=== PATIENT | male | born 1960 | race Two or more races ===

== ENCOUNTER → 2018-04-07 | Outpatient (CLI) | payer BC ==
[~2018-04-07] MED LIST: ALPR0.5T8 PO; ASPI-1169 PO; ATOR10TA PO; FENO145T35 PO; INDO75CA3 PO; LISI40TA4 PO; METF-442 PO; METO25TA20 PO; OMEP20CA10 PO
== END | disposition home or self-care (01) ==
LOC: MSC 13:15
PROVIDERS: ATTEND Anesthesiology
DX: Z76.0 Encounter for issue of repeat prescription (principal); M54.12 Radiculopathy, cervical region; M43.02 Spondylolysis, cervical region; M50.20 Other cervical disc displacement, unspecified cervical region; M79.602 Pain in left arm; Z79.891 Long term (current) use of opiate analgesic; I10 Essential (primary) hypertension; E11.9 Type 2 diabetes mellitus without complications; Z79.84 Long term (current) use of oral hypoglycemic drugs; I25.10 Atherosclerotic heart disease of native coronary artery without angina pectoris; Z95.5 Presence of coronary angioplasty implant and graft

== ENCOUNTER 2018-05-05 13:15 | Outpatient (CLI) | payer BC | END 2018-05-05 23:59 | disposition home or self-care (01) | LOC: MSC 13:15 | PROVIDERS: ATTEND Anesthesiology | DX: M50.20 Other cervical disc displacement, unspecified cervical region (principal); M54.12 Radiculopathy, cervical region; M43.02 Spondylolysis, cervical region; M79.602 Pain in left arm; E11.9 Type 2 diabetes mellitus without complications; Z79.84 Long term (current) use of oral hypoglycemic drugs; I10 Essential (primary) hypertension; I25.10 Atherosclerotic heart disease of native coronary artery without angina pectoris; Z95.818 Presence of other cardiac implants and grafts; Z79.891 Long term (current) use of opiate analgesic ==

== ENCOUNTER 2018-05-15 15:07 | Emergency (ER) | payer BC ==
[~2018-05-15] VITALS: Ht 175.3 cm; Wt 82.3 kg
[2018-05-15 15:30] LABS: BASOPHILS # (AUTO) 0.1 /CMM (0.0-0.2); EOSINOPHILS % (AUTO) 1.5 % (0.0-6.0); HEMATOCRIT 40 % (39-51); HEMOGLOBIN 13.5 g/dL (13.5-17.5); LYMPHOCYTES # (AUTO) 3.1 /CMM (0.8-4.8); LYMPHOCYTES % (AUTO) 31.4 % (20.0-44.0); MEAN CORPUSCULAR HGB CONC 34 g/dl (31.0-36.0); MEAN CORPUSCULAR VOLUME 86 fL (80-96); MONOCYTES # (AUTO) 0.6 /CMM (0.1-1.30); NEUTROPHILS % (AUTO) 60.1 % (43.0-81.0); PLATELET COUNT (AUTO) 300 /CMM (150-450); RDW COEFFICIENT OF VARIATION 12.6 (11.5-15.0); RED BLOOD CELL COUNT(AUTO) 4.66 MIL/uL (4.5-6.0); WHITE BLOOD COUNT (AUTO) 9.9 K/uL (4.3-11.0)
[2018-05-15] MEDS ORDERED: ASPIRIN 81 MG TAB.CHEW PO ONE (15:30)
--- NOTE | 2018-05-15 15:30 | NUR ---
PT A/O 4. C/C OF CHEST PAIN AND CHEST PALPITIONS X4 HRS. THROBBING TIGHTNESS SUBSTERNAL, NON RADIATING, 2/10 PAIN. NEG SOB. NEG ACUTE DISTRESS. VSS. SAFTEY MEASURES IN PLACE.
[2018-05-15] MEDS ORDERED: ASPIRIN 81 MG TAB.CHEW ONE (15:32)
[2018-05-15 15:40] LABS: CALCIUM, SERUM 9.7 mg/dL (8.5-10.1); CARBON DIOXIDE 26 mmol/L (21-32); CHLORIDE 104 mmol/L (98-107); CREATININE 1.2 mg/dL (0.6-1.3); GLUCOSE 221 mg/dL (74-106); POTASSIUM 3.8 mmol/L (3.5-5.1); SODIUM SERUM 138 mmol/L (136-145); UREA NITROGEN, BLOOD 18 mg/dL (7-18)
[2018-05-15 15:49] LABS: TROPONIN I < 0.017 ng/mL (0.00-0.056)
[2018-05-15] MEDS ORDERED: INDO75CA3 PO (16:25)
[2018-05-15] MEDS ORDERED: METF-442 PO (16:25)
[2018-05-15] MEDS ORDERED: METO25TA20 PO (16:25)
[2018-05-15] MEDS ORDERED: ASPI-1169 PO (16:25)
[2018-05-15] MEDS ORDERED: LISI40TA4 PO (16:25)
[2018-05-15] MEDS ORDERED: ALPR0.5T8 PO (16:25)
[2018-05-15] MEDS ORDERED: ATOR10TA PO (16:25)
[2018-05-15] MEDS ORDERED: OMEP20CA10 PO (16:25)
[2018-05-15] MEDS ORDERED: FENO145T35 PO (16:25)
--- NOTE | 2018-05-15 16:52 | NUR ---
TELE 327-2 FOR CHEST PAIN, FLORY FRANKS ADMITTING
--- NOTE | 2018-05-15 18:03 | NUR ---
Patient does not wish to proceed with medical care recommended by Dr. Jacobs. Patient given information related to possible complications, up to and including ,Which could occur as a result of leaving the hospital at this time. Patient verbalizes understanding of risks involved due to leaving against medical advice. Patient has signed AMA form.
[2018-05-15 18:05] VITALS: BP 141/89
== END 2018-05-15 18:06 | disposition home or self-care (01) ==
LOC: ER 15:09 → UNDOADMIN 17:16 → TELE 17:16
DX: R07.89 Other chest pain (principal); I10 Essential (primary) hypertension; E11.9 Type 2 diabetes mellitus without complications; I25.10 Atherosclerotic heart disease of native coronary artery without angina pectoris; I25.2 Old myocardial infarction; F17.200 Nicotine dependence, unspecified, uncomplicated; Z79.82 Long term (current) use of aspirin; Z79.84 Long term (current) use of oral hypoglycemic drugs
CPT/HCPCS: 36415; 71045; 80048; 84484; 85025; 87081; 93005 ×2; 99285; A4606 ×2; Z7610 ×2

== ENCOUNTER 2018-07-07 11:30 | Outpatient (CLI) | payer BC ==
[~2018-07-07 11:30] MED LIST changes: -METF-442 PO; +METF10004 PO
== END 2018-07-07 23:59 | disposition home or self-care (01) ==
LOC: MSC 11:30
PROVIDERS: ATTEND Anesthesiology
DX: M54.12 Radiculopathy, cervical region (principal); M43.02 Spondylolysis, cervical region; M50.20 Other cervical disc displacement, unspecified cervical region; M79.602 Pain in left arm; Z79.891 Long term (current) use of opiate analgesic; E11.9 Type 2 diabetes mellitus without complications; I10 Essential (primary) hypertension; Z79.84 Long term (current) use of oral hypoglycemic drugs; E78.5 Hyperlipidemia, unspecified; I25.10 Atherosclerotic heart disease of native coronary artery without angina pectoris; Z95.818 Presence of other cardiac implants and grafts

== ENCOUNTER → 2018-08-11 | Outpatient (CLI) | payer BC ==
[~2018-08-11] MED LIST changes: +METF-442 PO; -METF10004 PO
== END | disposition home or self-care (01) ==
LOC: MSC 02:30
PROVIDERS: ATTEND Anesthesiology
DX: Z51.89 Encounter for other specified aftercare (principal); Z95.5 Presence of coronary angioplasty implant and graft; M50.123 Cervical disc disorder at C6-C7 level with radiculopathy; I10 Essential (primary) hypertension; E78.5 Hyperlipidemia, unspecified; E11.9 Type 2 diabetes mellitus without complications; Z79.82 Long term (current) use of aspirin; Z79.4 Long term (current) use of insulin; Z79.899 Other long term (current) drug therapy

== ENCOUNTER 2018-12-01 15:15 | Outpatient (CLI) | payer BC | END 2018-12-01 23:59 | disposition home or self-care (01) | LOC: MSC 15:15 | PROVIDERS: ATTEND Anesthesiology | DX: M50.20 Other cervical disc displacement, unspecified cervical region (principal); M43.02 Spondylolysis, cervical region; M54.12 Radiculopathy, cervical region; M79.602 Pain in left arm; Z79.891 Long term (current) use of opiate analgesic; Z98.890 Other specified postprocedural states ==

== ENCOUNTER 2018-12-29 15:30 | Outpatient (CLI) | payer BC | END 2018-12-29 23:59 | disposition home or self-care (01) | LOC: MSC 15:30 | PROVIDERS: ATTEND Anesthesiology | DX: M50.20 Other cervical disc displacement, unspecified cervical region (principal); M54.12 Radiculopathy, cervical region; M43.02 Spondylolysis, cervical region; M79.602 Pain in left arm; Z79.891 Long term (current) use of opiate analgesic ==

== ENCOUNTER 2019-01-26 14:00 | Outpatient (CLI) | payer BC | END 2019-01-26 23:59 | disposition home or self-care (01) | LOC: MSC 14:00 | PROVIDERS: ATTEND Anesthesiology | DX: M50.20 Other cervical disc displacement, unspecified cervical region (principal); M54.12 Radiculopathy, cervical region; M43.02 Spondylolysis, cervical region; I25.10 Atherosclerotic heart disease of native coronary artery without angina pectoris; I10 Essential (primary) hypertension; Z95.5 Presence of coronary angioplasty implant and graft; E11.9 Type 2 diabetes mellitus without complications; Z98.890 Other specified postprocedural states; Z79.891 Long term (current) use of opiate analgesic ==

== ENCOUNTER 2020-09-21 10:29 | Outpatient (CLI) | payer OTHER ==
[~2020-09-21 10:29] MED LIST changes: +FENO145T21 PO; -FENO145T35 PO; -OMEP20CA10 PO; +OMEP20CA15 PO
== END 2020-09-21 23:59 | disposition home or self-care (01) ==
LOC: LAB 10:29
PROVIDERS: ATTEND Specialist
DX: Z01.812 Encounter for preprocedural laboratory examination (principal); Z20.828 Contact with and (suspected) exposure to other viral communicable diseases
CPT/HCPCS: 87426; C9803; U0003

== ENCOUNTER 2020-09-27 05:22 | Day surgery (SDC) | payer OTHER ==
[2020-09-27] MEDS ORDERED: ANESTHESIA TRAY IN PYXIS 1 EA TRAY MC ONE (06:31)
[2020-09-27] MEDS ORDERED: LIDOCAINE 1% INJ 50 ML MDV IJ ONE (06:32)
[2020-09-27] MEDS ORDERED: SEVOFLURANE 250 ML BOTTLE IH ONE (06:53)
[2020-09-27] MEDS ORDERED: FLUMAZENIL 0.5 MG VIAL ONE (07:08)
[2020-09-27] MEDS ORDERED: FENTANYL PF 100MCG/2ML AMPUL ONE ×2 (07:51→08:01)
--- NOTE | 2020-09-27 08:52 | NUR ---
RN NOTES PATIENT RETURNED FROM OR IN STABLE CONDITION. PATIENT ALERT, ORIENTED X4. AWAKE. VS WNL. PATIENT RESTING IN BED. SAFETY MEASURES IN PLACE. LEFT HAND COVERED WITH DRESSING INTACT PATENT, ELEVATED. WILL CONTINUE TO MONITOR.
[2020-09-27] MEDS ORDERED: HYDROCODONE/APAP 5/325MG TABLET PO PRN ×2 (10:30)
--- NOTE | 2020-09-27 12:01 | NUR ---
RN NOTES PATIENT DISCHARGED HOME IN STABLE CONDITION. VS WNL. PERIPHERAL IV REMOVED WITH MINIMAL BLEEDING. PATIENT AMBULATORY. DISCHARGE TEACHING PROVIDED, VERBALIZED UNDERSTANDING. ESCORTED TO CAR. ALL BELONGINGS ACCOUNTED FOR, BELONGING LIST SIGNED.
== END 2020-09-27 18:00 | disposition home or self-care (01) ==
LOC: DS 05:22 → UNDOADMIN 05:23 → MED 05:23 → UNDODISIN 12:00 → DS 18:00
PROVIDERS: ATTEND Specialist
DX: G56.02 Carpal tunnel syndrome, left upper limb (principal); I10 Essential (primary) hypertension; E11.9 Type 2 diabetes mellitus without complications
CPT/HCPCS: 64721; 82962; 87081; A6402; J0690; J1100; J1885; J2405; J2704; J3010 ×2; J3490 ×2; G0378